=== PATIENT | male | born 1950 | race Caucasian/White ===

== ENCOUNTER → 2018-02-28 | Outpatient (CLI) | payer OTHER ==
--- NOTE | 2018-02-28 09:46 | PCVCIMAG ---
APPROVED REPORT Study performed: 02/28/2018 08:53:51 EXAM: Comprehensive 2D, Doppler, and color-flow Echocardiogram Patient Location: Echo lab Status: routine BSA: 2.13 HR: 53 bpmBP: 132/88 mmHg Rhythm: Bradycardia Other Information Study Quality: Adequate Risk Factors: Cardiac Risk Factors: HTN, Hyperlipidemia Indications Palpitations 2D Dimensions LVEF(%): 58.79 (>50%) IVSd: 11.26 (7-11mm) LVDd: 54.84 mm PWd: 10.31 (7-11mm)Ascending Ao: 33.64 (22-36mm) LVDs: 37.58 (25-40mm) Left Atrium: 39.78 (27-40mm) Aortic Root: 27.81 mm LV Single Plane 4CH: 59.67 % LV Single Plane 2CH: 69.09 %Owens's LVEF: 64.38 % Biplane EF: 65.8 % Volumes Left Atrial Volume (Systole) Single Plane 4CH: 64.40 mLSingle Plane 2CH: 89.89 mL LA ESV Index: 36.00 mL/m2 Aortic Valve AoV Peak Sacha.: 2.00 m/s AO Peak Gr.: 16.07 mmHgLVOT Max P.22 mmHg LVOT Max V: 1.28 m/s Mitral Valve E/A Ratio: 1.0 MV Decel. Time: 178.70 ms MV E Max Sacha.: 0.99 m/s MV A Sacha.: 0.96 m/s IVRT: 100.35 ms Pulmonary Valve PV Peak Sacha.: 1.06 m/sPV Peak Gr.: 4.47 mmHg Pulmonary Vein P Vein S: 0.36 m/sP Vein A: 0.34 m/s P Vein D: 0.50 m/sP Vein A Dur.: 141.9 msec P Vein S/D Ratio: 0.72 Tricuspid Valve TR Peak Sacha.: 2.59 m/s TR Peak Gr.: 26.78 mmHg Left Ventricle The left ventricle is normal size. There is normal LV segmental wall motion. There is normal left ventricular wall thickness. Left ventricular systolic function is normal. The left ventricular ejection fraction is within the normal range. LVEF is 60-65%. Grade I - abnormal relaxation pattern. Right Ventricle The right ventricle is normal size. The right ventricular systolic function is normal. Atria The left atrium size is normal. The right atrium size is normal. Aortic Valve The aortic valve is normal in structure. No aortic regurgitation is present. There is no aortic valvular stenosis. Mitral Valve Mild anterior mitral valve leaflet prolapse. Mild to moderate mitral regurgitation. No evidence of mitral valve stenosis. Tricuspid Valve The tricuspid valve is normal in structure. Mild tricuspid regurgitation with PAP of 34 mmHg. Pulmonic Valve The pulmonary valve is normal in structure. There is no pulmonic valvular regurgitation. Great Vessels The aortic root is normal in size. IVC is normal in size and collapses with >50% inspiration Pericardium There is no pericardial effusion. There is no pleural effusion. <Conclusion> The left ventricle is normal size. LVEF is 60-65%. Grade I - abnormal relaxation pattern. The right ventricle is normal size. The left atrium size is normal. The aortic valve is normal in structure. There is no aortic valvular stenosis. Mild to moderate mitral regurgitation. Mild tricuspid regurgitation with PAP of 34 mmHg. The aortic root is normal in size. There is no pericardial effusion.
== END | disposition home or self-care (01) ==
LOC: PCVCIMAG 13:29
PROVIDERS: ATTEND Internal Medicine Cardiovascular Disease
DX: I08.1 Rheumatic disorders of both mitral and tricuspid valves (principal); I10 Essential (primary) hypertension; E78.5 Hyperlipidemia, unspecified
CPT/HCPCS: 93306

== ENCOUNTER → 2019-01-10 | Outpatient (CLI) | payer MEDICARE | END | disposition home or self-care (01) | LOC: PCVCCLINIC 10:00 | PROVIDERS: ATTEND Internal Medicine Cardiovascular Disease | DX: I10 Essential (primary) hypertension (principal); E78.00 Pure hypercholesterolemia, unspecified; R00.2 Palpitations; Z88.8 Allergy status to other drugs, medicaments and biological substances | CPT/HCPCS: 93005; G0463 ==